=== PATIENT | female | born 1970 | race Caucasian/White ===

== ENCOUNTER → 2017-04-11 15:33 | Outpatient (CLI) | payer OTHER, SELFPAY ==
--- NOTE | 2017-04-11 16:30 | CT_ITS ---
STUDY: CT ABDOMEN AND PELVIS WITH CONTRAST REASON FOR EXAM: Female, 46 years old. LT FLANK PAIN, LBP, PELVIC PAIN, RECURRENT BACTERIAL VAGINOSIS, UTI'S, HX-BREAST CA WITH MASTECTOMY-BILAT AND CHEMO, SURG-BLADDER SLING, PARTIAL HYSTER, HERNIA REPAIR RADIATION DOSAGE (If Supplied By Facility): CTDIvol = ( 13.61 ) mGy, DLP = ( 662.08 ) mGycm TECHNIQUE: Transaxial images were obtained from the dome of the diaphragm to the symphysis pubis without oral contrast. 100 ml of Isovue 300 contrast was administered. Sagittal and coronal images were reconstructed. Individualized dose optimization techniques were used for this CT. COMPARISON: US Abdomen Oct 27 2015 8:08am report only FINDINGS: The visualized lung bases are unremarkable. The visualized portions of the heart are within normal limits. There is a mildly peripherally enhancing mass in the liver. This is likely a hemangioma. However, other etiologies are not excluded.. It measures 23 mm Normal gallbladder and extrahepatic biliary system. Normal spleen. Normal pancreas. Nonspecific 4.9 mm hypodensity in the inferior right lobe of the liver. Normal bilateral adrenal glands. Normal right kidney. Normal left kidney. Normal visualized stomach. Normal small intestine. There is wall thickening of the descending and rectosigmoid colon. There is also questionable inflammation around the colon. This can suggest a colitis. This can also suggest incomplete distension of the colon. The appendix is visualized and appears normal. Normal abdominal aorta. Normal inferior vena cava. Normal retroperitoneum. Normal urinary bladder. There is absence of the uterus consistent with a prior hysterectomy. Normal abdominal wall. Normal osseous structures. CT/Abdomen/Pelvis WITH Contrast IMPRESSION: There is a mildly peripherally enhancing mass in the liver. This is likely a hemangioma. However, other etiologies are not excluded.. It measures 23 mm. Similar finding was noted on ultrasound of November 01, 2015. Nonspecific 4.9 mm hypodensity in the inferior right lobe of the liver. Question mild colitis of the descending and rectosigmoid colon Electronically Signed: Volodymyr Weems MD at 23:53 EST , Service support ,
== END ==
PROVIDERS: Family Provider Family Medicine; PCP Family Medicine; Visit Provider Obstetrics & Gynecology
DX: R10.9 Unspecified abdominal pain (principal)
CPT/HCPCS: 74177; Q9967

== ENCOUNTER → 2017-04-12 19:21 | Outpatient (CLI) | payer OTHER, SELFPAY | PROVIDERS: Family Provider Family Medicine; PCP Family Medicine; Visit Provider Obstetrics & Gynecology | DX: N39.0 Urinary tract infection, site not specified (principal); B37.3 Candidiasis of vulva and vagina | CPT/HCPCS: 87070; 87077; 87086; 87106; 87205 ==

== ENCOUNTER → 2017-04-29 15:24 | Outpatient (CLI) | payer OTHER, SELFPAY ==
--- NOTE | 2017-04-29 15:45 | CYSPIN_PTH ---
PATIENT: ANDREW WINSTON LOC: LAB U#:[id number] AGE/SX: 54/F ROOM: RE04/29/[address]: Dr. Mariah Obrien MD : 1970 BED: DIS: SPEC #: [id number] RECD: 05/02/17 12:56 STATUS: GORDO YAP #: [id number] GENE: 04/29/17 15:[address]: Mariah Obrien DEPT: CYTOLOGY RECD BY: Zach Edwards ENTERED: 05/02/17 12:56 SP TYPE: CYSPIN FL OTHR DR: Dr. Dorian Brantley MD Tissues: Urine Procedures: Pap Stain (control) Special Stain Group II Cytospin Fluid HEADER OPERATION: Not noted PRE-OP DIAGNOSIS: Candidiasis, unspecified TISSUE SUBMITTED: Urine for cytology DIAGNOSIS CYTOLOGY Urine for cytology (cytospin): Negative for malignant cells. SJ:sherine 05/03/17 COMMENT Correlation with clinical findings and appropriate follow up are necessary. CYTOLOGY STUDY Slides are reviewed. The specimen predominantly consists of benign squamous cells. Fungal organisms are not identified. CYTOLOGY GROSS Received is 20 ml of clear, yellow fluid labeled with the patient's name and and designated per the requisition as urine. Submitted for cytology preparation. 05/02/17 TC:4 CPT: 37679
[2017-04-29 16:02] LABS: Cytology, Body Fluid / CSF SEE PATHOLOGY REPORT
== END ==
PROVIDERS: Family Provider Family Medicine; PCP Family Medicine; Visit Provider Obstetrics & Gynecology
DX: R10.9 Unspecified abdominal pain (principal); N39.0 Urinary tract infection, site not specified; R31.9 Hematuria, unspecified; B37.9 Candidiasis, unspecified; Z87.440 Personal history of urinary (tract) infections
CPT/HCPCS: 87070; 88108; 88313

== ENCOUNTER → 2017-05-17 18:18 | Outpatient (CLI) | payer OTHER, SELFPAY | PROVIDERS: PCP Family Medicine; Visit Provider Nurse Practitioner Women's Health | DX: N76.0 Acute vaginitis (principal); R30.0 Dysuria | CPT/HCPCS: 87070; 87077; 87086; 87088; 87186; 87205 ==

== ENCOUNTER → 2017-05-26 18:36 | Outpatient (CLI) | payer OTHER, SELFPAY | PROVIDERS: Family Provider Family Medicine; PCP Family Medicine; Visit Provider Obstetrics & Gynecology | DX: R30.0 Dysuria (principal); N89.8 Other specified noninflammatory disorders of vagina | CPT/HCPCS: 87070; 87077; 87086; 87106; 87205 ==

== ENCOUNTER → 2017-06-24 18:24 | Outpatient (CLI) | payer OTHER, SELFPAY | PROVIDERS: Family Provider Family Medicine; PCP Family Medicine; Visit Provider Obstetrics & Gynecology | DX: B37.3 Candidiasis of vulva and vagina (principal); N39.0 Urinary tract infection, site not specified; N94.9 Unspecified condition associated with female genital organs and menstrual cycle | CPT/HCPCS: 87070; 87086; 87088; 87106; 87205 ==

== ENCOUNTER → 2017-06-28 09:25 | Outpatient (CLI) | payer OTHER, SELFPAY ==
--- NOTE | 2017-06-28 15:13 | PFTCOMP_ITS ---
COMPLETE PULMONARY FUNCTION TEST INTERPRETATION Brief HPI: Patient is a 46 year old female, currently under the care of myself, who presents to [facility] for complete pulmonary function tests secondary to diagnosis of cough. Respiratory therapist reports good effort and reproducible results. Interpretation: Forced expiration spirometry shows a mild large airways obstructive ventilatory defect with an FEV1 of 93% predicted. There is a significant bronchodilator response in FEV1 by ATS criteria. Spirograms are of poor quality and plateau slowly, indicating slowly emptying areas of the lungs. The respiratory flow volume loop shows decreased expiratory flow rates at high lung volumes consistent with small airways obstruction. Lung volumes by body plethysmography show an elevated total lung capacity at 6.54 L, 121% predicted. All other lung volumes are symmetrically elevated. Diffusion capacity by carbon monoxide is normal at 98 % predicted. The airway resistance is normal. No previous pulmonary function tests were available for review. Impression: Fully reversible mild large airways obstructive ventilatory defect resulting in hyperinflation and consistent with the diagnosis of asthma.
[2017-07-02 13:36] LABS: B. pertussis IgA < 1.0 index (0.0-0.9); B. pertussis IgG 1.41 index (0.00-0.94); B. pertussis IgM < 1.0 index (0.0-0.9)
== END ==
PROVIDERS: Nurse Practitioner Acute Care; Family Provider Family Medicine; PCP Family Medicine; Visit Provider Internal Medicine Critical Care Medicine
DX: R05 Cough (principal)
CPT/HCPCS: 36415; 94060; 94726; 94729

== ENCOUNTER → 2017-07-04 15:38 | Outpatient (CLI) | payer OTHER, SELFPAY ==
[2017-07-04 16:46] LABS: ALB/GLOB Ratio 1.2 RATIO (0.9-2.4); AST(SGOT) 13 U/L (15-37); Alanine Aminotransfer ALT/SGPT 16 U/L (13-56); Albumin, Serum 3.7 g/dL (3.2-5.0); Alkaline Phosphatase 40 U/L (45-117); Anion Gap 5 (5-15); BUN 15 mg/dL (7-18); BUN/Creat Ratio 16.2 RATIO (10-20); Calcium,Total 8.6 mg/dL (8.5-10.1); Chloride 110 mmol/L (98-107); Creatinine, Serum 0.92 mg/dL (0.55-1.02); EST Glomerular Filtration Rate 69 mL/min (>60); Est Glom Filt Rate - Afr Amer 83 mL/min (>60); Globulin 3.2 g/dL (2.2-4.2); Glucose 88 mg/dL (74-106); Potassium 3.9 mmol/L (3.5-5.1); Protein, Total 6.9 g/dL (6.4-8.2); Sodium Level 140 mmol/L (136-145)
== END ==
PROVIDERS: Family Provider Family Medicine; PCP Family Medicine; Visit Provider Obstetrics & Gynecology
DX: B99.9 Unspecified infectious disease (principal)
CPT/HCPCS: 36415; 80053

== ENCOUNTER → 2017-07-07 09:50 | Outpatient (CLI) | payer OTHER, SELFPAY ==
[2017-07-07 11:22] LABS: Basophil# 0.04 X10^3/uL; Basophil% 1.1 % (0-1); Eosinophil# 0.07 X10^3/uL; Eosinophils% 1.9 % (0-5); Hematocrit 40.3 % (37-47); Hemoglobin 13.2 g/dl (12.0-15.0); Lymphocyte % 33.4 % (19-41); Mean Corp Hgb Conc 32.8 g/gl (32-36); Mean Corpuscular Hgb 33.2 pg (27.0-32.0); Mean Corpuscular Volume 101.3 fL (81-99); Mean Platelet Vol. 10.3 fl (6.2-12.0); Monocyte# 0.29 X10^3/uL; Monocyte% 8.1 % (0-10); Neutrophil # 1.99 X10^3/uL (2.7-7.7); Neutrophil % 55.5 % (47-70); Platelet Count 251 K/mm3 (150-450); RBC Distribution Width CV 12.2 % (11.6-14.6); RBC Distribution Width SD 45.1 fl (35.1-43.9); Red Blood Count 3.98 M/mm3 (4.2-5.4); White Blood Count 3.6 K/mm3 (4.4-11.0)
[2017-07-07 11:25] LABS: POSITIVE COUNT NO; POSITIVE DIFFERENTIAL NO; POSITIVE MORPHOLOGY NO
[2017-07-12 12:08] LABS: Aspirgillus flavus Negative (Neg:<1:1); Aspirgillus fumigatus Negative (Neg:<1:1); Aspirgillus niger Negative (Neg:<1:1)
[2017-07-12 14:07] LABS: Alternaria alternata <0.10 kU/L (Class 0); Bermuda Grass <0.10 kU/L (Class 0); Bluegrass, Kentucky 0.48 kU/L (Class I); Cat Hair/Dander, Standard <0.10 kU/L (Class 0); D farinae Mite 0.58 kU/L (Class II); D pteronyssinus 0.23 kU/L (Class 0/I); Dog Epithelia <0.10 kU/L (Class 0); Oak, White 5.49 kU/L (Class IV); Plantain, English <0.10 kU/L (Class 0); Ragweed, Short/Common 1.28 kU/L (Class II)
[2017-07-12 14:14] LABS: Immunoglobulin E 65 IU/mL (0-100)
[2017-07-12 15:18] LABS: Mouse Urine <0.10 kU/L (Class 0)
== END ==
PROVIDERS: Family Provider Family Medicine; PCP Family Medicine; Visit Provider Nurse Practitioner Acute Care
DX: R05 Cough (principal)
CPT/HCPCS: 36415; 82785; 85025; 86003; 86606

== ENCOUNTER → 2017-07-07 17:10 | Outpatient (CLI) | payer OTHER, SELFPAY | PROVIDERS: Visit Provider Obstetrics & Gynecology | DX: N76.0 Acute vaginitis (principal) | CPT/HCPCS: 87070; 87077; 87106; 87205 ==

== ENCOUNTER 2017-07-14 09:11 | Day surgery (SDC) | payer OTHER, SELFPAY ==
[2017-07-14] VITALS (8 sets, daily range): BP systolic 134–171; BP diastolic 52–83; PULSE 65–88; RESP 16–28; TEMP 36.9–37.2; O2SAT 95–100; BMI 27.1
--- NOTE | 2017-07-14 | IMM_PTH ---
PATIENT: ANDREW WINSTON LOC: EN U#:[id number] AGE/SX: 46/F ROOM: RE07/14/[address]: Dr. Arcadio Lizarraga MD : 1970 BED: DIS: 07/14/2017 SPEC #: [id number] RECD: 07/15/17 10:53 STATUS: GORDO FRACISCO #: [id number] GENE: 07/14/17 00:[address]: Arcadio Lizarraga DEPT: IMMUNOHISTOCHEMISTRY RECD BY: Brianne Ng ENTERED: 07/15/17 10:55 SP TYPE: IMMUNO OTHR DR: Dr. Dorian Brantley MD Tissues: B - Stomach, NOS C - Stomach, NOS D - HERNIA Procedures: H Pylori (initial) PHYSICIAN & INSTITUTION [place] [id number] SPECIMEN INFORMATION: Tissue Source: B ? Antrum biopsy, C ? Proximal stomach biopsy, D ? Biopsy hiatal hernia Clinical Info: Reflux, cough Specimen Number: [id number] B-D CPT code: 66765 x3 METHODOLOGY: Deparaffinized sections of prefer/formalin-fixed tissue or PAP/DQ stained slides are incubated with monoclonal/polyclonal antibodies/oligonucleotide probes. Localization is made via biotin free immunoperoxidase method. Appropriate controls are performed and reacted as expected. Results on target cell population are indicated in the following table: RESULTS: ANTIBODY / CLONE RESULT Block B H Pylori (polyclonal) negative Block C H Pylori (polyclonal) negative Block D H Pylori (polyclonal) negative These tests were developed and their performance characteristics determined by [facility]. They may not have been cleared or approved by the U.S. Food and Drug Administration. The FDA has determined that such clearance or approval is not necessary. INTERPRETATION: B. Antrum, biopsy: Negative for Helicobacter pylori organisms. C. Proximal stomach, biopsy: Negative for Helicobacter pylori organisms. D. Hiatal hernia, biopsy: Negative for Helicobacter pylori organisms. SJ:shernie 07/15/17
--- NOTE | 2017-07-14 10:40 | EGD_PTH ---
PATIENT: ANDREW WINSTON LOC: EN U#:[id number] AGE/SX: 46/F ROOM: RE07/14/[address]: Dr. Arcadio Lizarraga MD : 1970 BED: DIS: 07/14/2017 SPEC #: [id number] RECD: 07/14/17 11:20 STATUS: GORDO FRACISCO #: [id number] GENE: 07/14/17 10:[address]: Arcadio Lizarraga DEPT: SURGICAL PATHOLOGY RECD BY: Zach Edwards ENTERED: 07/14/17 12:15 SP TYPE: EGD BIOPSY OT DR: Dr. Dorian Brantley MD Tissues: A - Duodenum, NOS B - Gastric mucous membrane C - Stomach, NOS D - Esophagus, NOS E - Esophageal mucous membrane F - Esophageal mucous membrane G - Esophageal mucous membrane Procedures: Surgery Specimen Level IV HEADER OPERATION: EGD with biopsy PRE-OP DIAGNOSIS: Reflux, cough TISSUE SUBMITTED: A ? Biopsy duodenum, B ? Biopsy antrum, gastric, H. pylori, C ? Biopsy proximal stomach, D ? Biopsy hiatal hernia, E ? Biopsy distal esophagus, F ? Mid esophagus, G ? Proximal esophagus MICROSCOPIC DIAGNOSIS A. Duodenum, biopsy: Fragment of duodenal mucosa, no pathologic diagnosis. B. Antrum, biopsy: Mild gastritis. C. Proximal stomach, biopsy: Mild gastritis. D. Hiatal hernia: Mild chronic active gastritis. E. Distal esophagus, biopsy: Fragments of squamous epithelium with minimal chronic inflammation. F. Mid esophagus, biopsy: Fragments of squamous epithelium with minimal chronic inflammation. G. Proximal esophagus, biopsy: Fragment of squamous epithelium, no pathologic diagnosis. SJ:sherine 07/15/17 COMMENT B-D. The results of immunohistochemistry for Helicobacter pylori will be reported separately ([id number]). MICROSCOPIC DESCRIPTION Slides are reviewed. B & C. The specimen shows fragments of gastric mucosa with chronic inflammatory cell infiltrates in the lamina propria consisting of lymphocytes and plasma cells, consistent with mild chronic gastritis. GROSS DESCRIPTION A - Received in fixative is one container labeled with the patient's name and designated duodenum. The specimen consists of one irregular fragment of light baeza soft tissue that measures 0.3 x 0.3 x 0.1 cm. The specimen is totally submitted in one cassette. B - Received in fixative is one container labeled with the patient's name and designated antrum biopsy, antrum gastric. The specimen consists of one irregular fragment of light baeza soft tissue that measures 0.3 x 0.2 x 0.1 cm. The specimen is totally submitted in one cassette. C - Received in fixative is one container labeled with the patient's name and designated biopsy proximal stomach. The specimen consists of one irregular fragment of light baeza soft tissue that measures 0.4 x 0.4 x 0.1 cm. The specimen is totally submitted in one cassette. D - Received in fixative is one container labeled with the patient's name and designated hiatal hernia. The specimen consists of one irregular fragment of light baeza soft tissue that measures 0.8 x 0.2 x 0.1 cm. The specimen is totally submitted in one cassette. E - Received in fixative is one container labeled with the patient's name and designated distal esophagus. The specimen consists of multiple irregular fragments of light baeza soft tissue that in aggregate measure 0.6 x 0.6 x 0.1 cm. The specimen is totally submitted in one cassette. F - Received in fixative is one container labeled with the patient's name and designated mid esophagus. The specimen consists of one irregular fragment of light baeza soft tissue that measures 0.4 x 0.2 x 0.1 cm. The specimen is totally submitted in one cassette. G - Received in fixative is one container labeled with the patient's name and designated proximal esophagus. The specimen consists of one irregular fragment of light baeza soft tissue that measures 0.5 x 0.2 x 0.1 cm. The specimen is totally submitted in one cassette. / SJ:rg 07/14/17 TC:5 CPT: 58832 x7
--- NOTE | 2017-07-14 10:46 | PCM.OPRPT ---
Problem List (1) Chronic GERD Status: Acute Report of Operation Date of Procedure: 07/14/17 Pre-Operative Diagnosis: Severe chronic cough, possible silent gastroesophageal reflux disease Post-Operative Diagnosis: Moderate hiatal hernia, mild steel gastritis, minimal distal esophagitis Surgery/Procedure Performed:: Esophagogastroduodenoscopy with multiple biopsies Description of Surgical Findings:: Timeout and informed consent was obtained. 46-year-old female was taken to the endoscopy suite. Her oropharynx was anesthetized with Topex. She was placed in left lateral decubitus position. Prior to procedure during the procedure and subsequent to the procedure she had an incessant chronic nonproductive cough. She underwent monitored anesthesia care. Flexible gastroscope was inserted into the esophageal inlet. The proximal mid distal esophagus did not appear very remarkable. The EG junction was at 35 cm. A slight Schatzki ring identified. A moderately large hiatal hernia noted. Findings minimally suggestive some distal esophageal irritation. The hiatal hiatal hernia portion of the stomach had some slight erythema. The scope was advanced into the stomach and there is diffuse mild erythema of the antrum. The scope was advanced through the pylorus and the first and second portions of the duodenum were unremarkable. Duodenal biopsy was obtained. The scope was withdrawn back into the stomach and antral biopsy was obtained. The scope was retroflexed and the moderate sized hiatal hernia inspected. The cardia was otherwise unremarkable. The scope was placed back in antegrade viewing position. Excess fluid and air was aspirated free. The scope was withdrawn and proximal gastric biopsies were obtained. Biopsies of the stomach within the hiatal hernia sac were obtained. Distal esophageal biopsies obtained. Subsequently mid and proximal esophageal biopsies were obtained. She tolerated all of this well without apparent complication. She persisted postoperatively with her chronic incessant cough as she had been preoperatively. Impression Severe chronic cough suspected to be pulmonary in etiology Moderate hiatal hernia. Mild diffuse gastritis. Nonobstructing minimal Schatzki ring. Multiple biopsies pending at this time. The patient will be notified of those results. The patient previously has been on acid suppression therapy in the form of proton pump inhibitor. Consideration for utilizing a cytoprotective agent like sucralfate could be considered. Will await biopsy results. The patient may be a candidate for further investigative evaluation with esophageal manometry. Although the patient may indeed have esophageal reflux her clinical presentation and type of cough currently do not correlate well with thoughts that a surgical reflux procedure will resolve her cough Cc: Dr. Dorian Brantley and Dr. Cody Navas and Yesenia Keane, LENARD Lizarraga M.D., F.A.C.S. Type of Anesthesia:: MAC
== END 2017-07-14 11:57 | disposition home or self-care (01) ==
LOC: EN 09:13 → AC 09:14
PROVIDERS: Family Provider Family Medicine; PCP Family Medicine; Visit Provider Surgery
PROC: 0DJ08ZZ Inspection of Upper Intestinal Tract, Via Natural or Artificial Opening Endoscopic (ICD-10-PCS; CPT 43235; principal; 2017-07-14 10:25)
DX: K29.70 Gastritis, unspecified, without bleeding (principal); K44.9 Diaphragmatic hernia without obstruction or gangrene; K21.9 Gastro-esophageal reflux disease without esophagitis; K58.9 Irritable bowel syndrome, unspecified; J40 Bronchitis, not specified as acute or chronic; J45.909 Unspecified asthma, uncomplicated; E78.00 Pure hypercholesterolemia, unspecified; Z79.82 Long term (current) use of aspirin; Z79.899 Other long term (current) drug therapy; Z87.440 Personal history of urinary (tract) infections; Z85.3 Personal history of malignant neoplasm of breast; Z92.21 Personal history of antineoplastic chemotherapy
CPT/HCPCS: 43239; 88305; 88342; J7120

== ENCOUNTER → 2017-07-19 17:58 | Outpatient (CLI) | payer OTHER, SELFPAY | PROVIDERS: Family Provider Family Medicine; PCP Family Medicine; Visit Provider Obstetrics & Gynecology | DX: N39.0 Urinary tract infection, site not specified (principal); B37.3 Candidiasis of vulva and vagina | CPT/HCPCS: 87070; 87077; 87086; 87106; 87205 ==

== ENCOUNTER → 2017-08-09 17:40 | Outpatient (CLI) | payer OTHER, SELFPAY | PROVIDERS: Visit Provider Obstetrics & Gynecology | DX: N39.0 Urinary tract infection, site not specified (principal); B37.3 Candidiasis of vulva and vagina | CPT/HCPCS: 87070; 87077; 87086; 87088; 87106; 87205 ==

== ENCOUNTER → 2017-08-19 12:19 | Outpatient (CLI) | payer OTHER, SELFPAY ==
--- NOTE | 2017-08-19 12:19 | DT_ITS ---
This patient was seen during an EMR downtime August 15, 2017 - August 22, 2017. This patient may have a combination of paper and electronic documentation or all paper documentation. All documentation is viewable within the e-chart portion of [facility] for each patient visit.
[2017-08-19 15:44] LABS: AST(SGOT) 14 U/L (15-37); Albumin, Serum 3.4 g/dL (3.2-5.0); BUN 14 mg/dL (7-18); BUN/Creat Ratio 14.1 RATIO (10-20); Calcium,Total 8.5 mg/dL (8.5-10.1); Chloride 109 mmol/L (98-107); Creatinine, Serum 0.99 mg/dL (0.55-1.02); EST Glomerular Filtration Rate 64 mL/min (>60); Est Glom Filt Rate - Afr Amer 78 mL/min (>60); Globulin 3.3 g/dL (2.2-4.2); Glucose 88 mg/dL (74-106); Protein, Total 6.7 g/dL (6.4-8.2); Sodium Level 143 mmol/L (136-145)
[2017-08-19 15:45] LABS: Anion Gap 8 (5-15)
[2017-08-21 12:47] LABS: Alanine Aminotransfer ALT/SGPT 18 U/L (13-56); Alkaline Phosphatase 38 U/L (45-117)
== END ==
PROVIDERS: Family Provider Family Medicine; PCP Family Medicine; Visit Provider Obstetrics & Gynecology
DX: B37.3 Candidiasis of vulva and vagina (principal); Z13.1 Encounter for screening for diabetes mellitus; Z79.899 Other long term (current) drug therapy
CPT/HCPCS: 36415; 80053

== ENCOUNTER → 2017-08-22 12:36 | Outpatient (CLI) | payer OTHER, SELFPAY ==
--- NOTE | 2017-08-22 12:36 | DT_ITS ---
This patient was seen during an EMR downtime August 15, 2017 - August 22, 2017. This patient may have a combination of paper and electronic documentation or all paper documentation. All documentation is viewable within the e-chart portion of [facility] for each patient visit.
== END ==
PROVIDERS: Family Provider Family Medicine; PCP Family Medicine; Visit Provider Obstetrics & Gynecology
DX: N76.0 Acute vaginitis (principal)
CPT/HCPCS: 87070; 87077; 87106; 87205

== ENCOUNTER → 2017-09-02 14:08 | Outpatient (CLI) | payer OTHER, SELFPAY ==
[2017-09-02 14:10] LABS: Bacteria 0 SEEN /hpf (None Seen); Mucous, Urine 0 SEEN /hpf (<or=2+); Red Blood Cells-Urine 0 SEEN /hpf (0-5); White Blood Cells 0 SEEN /hpf (0-5)
[2017-09-02 14:17] LABS: Color, Urine Yellow (Yellow); Glucose, Dipstick Normal (Normal); Ketone-Dipstick Negative (Negative); Leukocyte Esterase-Dipstick Negative /ul (Negative); Nitrite-Dipstick Negative (Negative); Occult Blood-Urine Negative /ul (Negative); Protein-Dipstick Negative (Negative); Specific Gravity, Urine 1.015 (1.002-1.030); Urine Bilirubin Dipstick Negative (Negative); Urine Clarity Clear (Clear); Urine Urobilinogen Normal (Normal)
[2017-09-02 14:23] LABS: Squamous Epithelial Cells - UA 0-5 SEEN /hpf (5-10)
== END ==
PROVIDERS: Visit Provider Obstetrics & Gynecology
DX: N39.0 Urinary tract infection, site not specified (principal)
CPT/HCPCS: 81001; 87086; 87088

== ENCOUNTER → 2017-09-12 18:07 | Outpatient (CLI) | payer OTHER, SELFPAY | PROVIDERS: Visit Provider Obstetrics & Gynecology | DX: R10.32 Left lower quadrant pain (principal); N76.0 Acute vaginitis | CPT/HCPCS: 87070; 87077; 87106; 87205 ==

== ENCOUNTER → 2017-10-03 13:15 | Outpatient (CLI) | payer OTHER, SELFPAY | PROVIDERS: Visit Provider Obstetrics & Gynecology | DX: N76.0 Acute vaginitis (principal) | CPT/HCPCS: 87070; 87077; 87106; 87205 ==

== ENCOUNTER → 2017-10-18 10:46 | Outpatient (CLI) | payer OTHER, SELFPAY ==
[2017-10-18 12:31] LABS: Estradiol 24.5 pg/mL; Follicle Stimulating Hormone 57.8 mIU/mL
--- NOTE | 2017-10-18 12:40 | CT_ITS ---
STUDY: CT ABDOMEN AND PELVIS WITH CONTRAST REASON FOR EXAM: Female, 47 years old. Lower abdominal pain. RADIATION DOSAGE (If Supplied By Facility): CTDIvol = ( 14.37 ) mGy, DLP = ( 952.65 ) mGycm TECHNIQUE: Transaxial images were obtained from the dome of the diaphragm to the symphysis pubis with oral contrast. 100 ml of Isovue 300 contrast was administered. Sagittal and coronal images were reconstructed. Individualized dose optimization techniques were used for this CT. COMPARISON: 04/11/2017. FINDINGS: The visualized lung bases are unremarkable. The visualized portions of the heart are within normal limits. Normal shape and size of the liver. Stable appearance of a probable 2.7 cm hemangioma in the posterior segment of the right lobe. Also stable are several probable subcentimeter cysts. Normal gallbladder and extrahepatic biliary system. Normal spleen. Normal pancreas. Normal bilateral adrenal glands. Normal right kidney. Normal left kidney. Normal visualized stomach. Normal small intestine. Normal colon. There is non-visualization of the appendix. Normal abdominal aorta. Normal inferior vena cava. Since prior exam several small embolization coils are seen in the right lower quadrant and in the same general area there is some minimal stranding in the retroperitoneum of the right pelvis. This finding was present previously also. Normal urinary bladder. There is absence of the uterus consistent with a prior hysterectomy. Normal abdominal wall. Normal osseous structures. CT/Abdomen/Pelvis WITH Contrast IMPRESSION: No definite acute abnormality. Stable probable hemangioma of the liver. Since prior exam patient has had several embolization coils positioned in the right lower quadrant of the pelvis, correlate with history. Electronically Signed: Sagar [place] MD at 15:48 EDT , Service support ,
== END ==
PROVIDERS: Family Provider Family Medicine; PCP Family Medicine; Visit Provider Obstetrics & Gynecology
DX: R10.32 Left lower quadrant pain (principal); N95.1 Menopausal and female climacteric states
CPT/HCPCS: 36415; 74177; 82670; 83001; Q9967

== ENCOUNTER → 2017-12-09 14:12 | Outpatient (CLI) | payer OTHER, SELFPAY | PROVIDERS: Family Provider Family Medicine; PCP Family Medicine; Referring Provider Obstetrics & Gynecology; Visit Provider Obstetrics & Gynecology | DX: N76.0 Acute vaginitis (principal); N94.9 Unspecified condition associated with female genital organs and menstrual cycle | CPT/HCPCS: 87070; 87077; 87086; 87088; 87106; 87205 ==

== ENCOUNTER → 2018-01-04 16:46 | Outpatient (CLI) | payer OTHER, SELFPAY | PROVIDERS: Family Provider Family Medicine; PCP Family Medicine; Referring Provider Obstetrics & Gynecology; Visit Provider Obstetrics & Gynecology | DX: B37.3 Candidiasis of vulva and vagina (principal) | CPT/HCPCS: 87070; 87077; 87106; 87205 ==

== ENCOUNTER → 2018-02-13 18:34 | Outpatient (CLI) | payer OTHER, SELFPAY ==
[2018-02-13 16:29] VITALS: BMI 26.9
== END ==
PROVIDERS: Family Provider Family Medicine; PCP Family Medicine; Referring Provider Obstetrics & Gynecology; Visit Provider Obstetrics & Gynecology
DX: N89.8 Other specified noninflammatory disorders of vagina (principal)
CPT/HCPCS: 87070; 87077; 87106; 87205

== ENCOUNTER → 2018-03-10 16:23 | Outpatient (CLI) | payer OTHER, SELFPAY ==
[2018-02-13 16:29] VITALS: BMI 26.9
--- NOTE | 2018-03-10 16:30 | RAD_ITS ---
STUDY: X-RAY - ABDOMEN/PELVIS REASON FOR EXAM: Female, 47 years old. Evaluate for MRI clearance. TECHNIQUE: Single AP view of the abdomen / pelvis. COMPARISON: Prior CT's of the abdomen and pelvis dated October 18, 2017 and April 11, 2017 FINDINGS: Normal visualized lung bases. There is an unremarkable bowel gas pattern. There is no demonstrated free abdominal air. The visualized liver, spleen and kidneys are grossly normal in size and morphology. There was residual barium in the right side of the colon on the October 18, 2017 CT. This has cleared. Normal visualized osseous structures. RAD/Abdomen Single View IMPRESSION: The patient is cleared for MRI of the abdomen. Electronically Signed: Wong Doe MD at 17:01 EST , Service support ,
--- NOTE | 2018-03-10 17:30 | MRI_ITS ---
STUDY: MR PELVIS WITH T WITHOUT CONTRAST REASON FOR EXAM: Female, 47 years old. Chronic pelvic pain. History of breast cancer and partial hysterectomy. Umbilical hernia repair and bladder sling. TECHNIQUE: Standardized fat and water weighted pulse sequences were obtained in all 3 orthogonal planes, pre-and post contrast administration. 7 ml of Gadavist contrast material was administered intravenously for the contrast portion of the examination. COMPARISON: CT abdomen and pelvis 10/18/2017, 04/11/2017. FINDINGS: Body wall soft tissues: No acute process. Osseous structures: Mild scoliosis. Minimal low lumbar spondylosis. Minimal hip joint degenerative features. No acute process. Bowel: Evaluated portions of the large and small bowel exhibit no acute process. Mild diverticulosis of the sigmoid colon. Mild chronic-appearing thickening of the wall and proliferation of creeping fat surrounding the sigmoid colon suggesting chronic sequela from prior episodes of inflammation without evidence of acute colitis or diverticulitis at this time. On prior imaging, the appendix was anterior and inferior to the base of the cecum. On the current study a portion of the proximal appendix is visible, unremarkable features. Urinary tract: Normal distal ureters. The urinary bladder is mildly thick-walled, mildly trabeculated, without acute inflammatory features in the surrounding periserosal fat. Normal course of the urethra. Uterus and adnexa: The uterus is surgically absent. Unremarkable features of the vagina. No significant cervical remnant. Prominent veins in the left adnexa are associated with a mildly ectatic left gonadal vein. As seen on prior imaging of 10/18/2017 there was retrograde left renal venous flow down a dilated left gonadal vein into the left adnexal veins. This may be a normal variant venous pathways but may be associated with pelvic venous congestion symptoms in some cases. Right ovary is small, lying along the distal nasal salpinx, unremarkable features. The left ovary contains a cyst measuring 2.1 cm in diameter, simple cystic features, thin-walled, central homogeneous T2 hyperintense and T1 hypointense. There is no adnexal or cul-de-sac free fluid. Adenopathy: There is no visible pelvic lymphadenopathy. Vasculature: Unremarkable. MRI/Pelvis W/WO Contrast IMPRESSION: Left ovarian cyst, simple cystic features, 2.1 cm. Mild thickening and trabeculation of the wall the urinary bladder. Left adnexal venous congestion as described above. This may be of no clinical significance but might contribute to symptoms of pelvic venous congestion syndrome. No acute intrapelvic process is otherwise evident. Electronically Signed: Zach Prajapati MD at 16:23 EST Tel , Service support ,
== END ==
PROVIDERS: Family Provider Family Medicine; PCP Family Medicine; Referring Provider Obstetrics & Gynecology; Visit Provider Obstetrics & Gynecology
DX: R10.2 Pelvic and perineal pain (principal); G89.29 Other chronic pain; R93.89 Abnormal findings on diagnostic imaging of other specified body structures
CPT/HCPCS: 72197; 74018; A9585

== ENCOUNTER → 2018-04-12 16:32 | Outpatient (CLI) | payer OTHER, SELFPAY ==
[2018-04-12 13:05] VITALS: BMI 26.9
== END ==
PROVIDERS: Family Provider Family Medicine; PCP Family Medicine; Referring Provider Obstetrics & Gynecology; Visit Provider Obstetrics & Gynecology
DX: R30.0 Dysuria (principal); N89.8 Other specified noninflammatory disorders of vagina
CPT/HCPCS: 87070; 87086; 87088; 87106; 87205

== ENCOUNTER 2018-05-20 08:55 | Outpatient (CLI) | payer OTHER, SELFPAY ==
[2018-04-12 13:05] VITALS: BMI 26.9
[2018-05-20 09:15] VITALS: BP 159/88; PULSE 69; RESP 16; TEMP 36.8; O2SAT 100; BMI 25.4
[2018-05-20] MEDS: 0.9% NaCl Peripheral Flush Adult/Peds IV (09:54)
--- NOTE | 2018-05-24 00:40 | OB.TRI.PN ---
Progress Notes Date of Service: 05/20/18 Progress Note: IV infusion of mucofungin given for refractory vaginal candidiasis
== END 2018-05-20 11:10 | disposition home or self-care (01) ==
LOC: MEDOUTP 08:57 → MS2 09:03
PROVIDERS: Family Provider Family Medicine; PCP Family Medicine; Referring Provider Obstetrics & Gynecology; Visit Provider Obstetrics & Gynecology
DX: B37.3 Candidiasis of vulva and vagina (principal)
CPT/HCPCS: 96365; A4216

== ENCOUNTER 2018-05-21 08:50 | Outpatient (CLI) | payer OTHER, SELFPAY ==
[2018-05-20 09:15] VITALS: BMI 25.4
[2018-05-21 09:08] VITALS: BP 174/110; PULSE 52; RESP 16; TEMP 36.5; O2SAT 100
--- NOTE | 2018-05-24 00:39 | OB.TRI.PN ---
Progress Notes Date of Service: 05/21/18 Progress Note: IV infusion of mucofungin given for refractory vaginal candidiasis
== END 2018-05-21 11:08 | disposition home or self-care (01) ==
LOC: MEDOUTP 08:53 → MS2 08:54
PROVIDERS: Family Provider Family Medicine; PCP Family Medicine; Visit Provider Obstetrics & Gynecology
DX: B37.3 Candidiasis of vulva and vagina (principal)
CPT/HCPCS: 96365

== ENCOUNTER 2018-05-22 06:34 | Outpatient (CLI) | payer OTHER, SELFPAY ==
[2018-05-22] MEDS: 0.9% NaCl IVPB Med Flush (250 mL) 15 ML IV (06:45)
[2018-05-22] MEDS: 0.9% NaCl Peripheral Flush Adult/Peds IV (07:13)
--- NOTE | 2018-05-24 00:38 | OB.TRI.PN ---
Progress Notes Date of Service: 05/22/18 Progress Note: IV infusion of mucofungin given for refractory vaginal candidiasis
== END 2018-05-22 08:30 | disposition home or self-care (01) ==
LOC: MEDOUTP 06:37 → MS3 06:37
PROVIDERS: Family Provider Family Medicine; PCP Family Medicine; Referring Provider Obstetrics & Gynecology; Visit Provider Obstetrics & Gynecology
DX: B37.3 Candidiasis of vulva and vagina (principal)
CPT/HCPCS: 96365; J7050; A4216

== ENCOUNTER → 2018-09-29 15:44 | Outpatient (CLI) | payer OTHER, SELFPAY ==
[2018-09-29 14:38] VITALS: BMI 24.3
--- NOTE | 2018-09-29 15:50 | RAD_ITS ---
STUDY: X-RAY CHEST REASON FOR EXAM: Female, 48 years old. Lymphedema. History of breast cancer. TECHNIQUE: PA and lateral views of the chest. COMPARISON: None. FINDINGS: The lungs are clear and expanded. There is no demonstrated pleural abnormality. Normal size heart. Normal mediastinum and gia. Normal visualized pulmonary arteries. Normal visualized aortic arch and descending thoracic aorta. Normal visualized thoracic spine. Normal visualized ribs, clavicles, and shoulders. There are bilateral breast implants. There is no demonstrated abnormality of the visualized soft tissue structures of the upper abdomen. RAD/Chest PA and Lateral IMPRESSION: No acute cardiopulmonary disease. Electronically Signed: Prasad Saldana DO at 16:17 EDT Tel [phone], Service support ,
== END ==
PROVIDERS: Family Provider Family Medicine; PCP Family Medicine; Referring Provider Surgery; Visit Provider Surgery
DX: I89.0 Lymphedema, not elsewhere classified (principal)
CPT/HCPCS: 71046

== ENCOUNTER → 2019-08-14 09:50 | Outpatient (CLI) | payer OTHER, SELFPAY ==
[2019-01-22 15:36] VITALS: BMI 24.3
[2019-08-14 12:14] LABS: Absolute Lymphocyte Count 1.13 X10^3/uL (0.83-4.51); Absolute Neutrophil Count 2.1 X10^3/uL (2.0-7.7); Basophil# 0.05 X10^3/uL; Basophil% 1.4 % (0-1); Eosinophil# 0.08 X10^3/uL; Eosinophils% 2.2 % (0-5); Hematocrit 44.6 % (37-47); Hemoglobin 13.8 g/dL (12.0-15.0); Lymphocyte # 1.13 X10^3/ul (4.0); Lymphocyte % 30.5 % (19-41); Mean Corp Hgb Conc 30.9 g/dL (32-36); Mean Corpuscular Hgb 31.9 pg (27.0-32.0); Mean Corpuscular Volume 103.2 fL (81-99); Mean Platelet Vol. 10.7 fl (6.2-12.0); Monocyte# 0.32 X10^3/uL; Monocyte% 8.6 % (0-10); NRBC Flagged by Analyzer 0 % (0-5); Neutrophil % 56.8 % (47-70); Platelet Count 199 K/mm3 (150-450); RBC Distribution Width CV 12.9 % (11.6-14.6); RBC Distribution Width SD 48.9 fl (35.1-43.9); Red Blood Count 4.32 M/mm3 (4.2-5.4); White Blood Count 3.7 K/mm3 (4.4-11.0)
[2019-08-14 12:18] LABS: Color, Urine Yellow (Yellow); Glucose, Dipstick Normal (Normal); Ketone-Dipstick Negative (Negative); Leukocyte Esterase-Dipstick Negative /ul (Negative); Nitrite-Dipstick Negative (Negative); Occult Blood-Urine Negative /ul (Negative); Protein-Dipstick Negative (Negative); Urine Bilirubin Dipstick Negative (Negative); Urine Clarity Clear (Clear); Urine Urobilinogen Normal (Normal)
[2019-08-14 12:25] LABS: Erythrocyte Sedimentation Rate 6 mm/hr (0-30)
[2019-08-14 12:57] LABS: Protein:Creat Ratio 102 mg/g CRE (0-200)
[2019-08-14 13:10] LABS: AST(SGOT) 20 U/L (15-37); Alanine Aminotransfer ALT/SGPT 33 U/L (13-56); Alkaline Phosphatase 53 U/L (45-117); Anion Gap 9 (5-15); BUN 15 mg/dL (7-18); BUN/Creat Ratio 13.8 RATIO (10-20); CRP < 2.90 mg/L (0.0-3.0); Calcium,Total 8.9 mg/dL (8.5-10.1); Chloride 108 mmol/L (98-107); Creatinine, Serum 1.09 mg/dL (0.55-1.02); EST Glomerular Filtration Rate 56 mL/min (>60); Est Glom Filt Rate - Afr Amer 68 mL/min (>60); Globulin 3.9 g/dL (2.2-4.2); Glucose 88 mg/dL (74-106); Potassium 3.6 mmol/L (3.5-5.1); Protein, Total 7.9 g/dL (6.4-8.2); Rheumatoid Factor < 10.0 IU/mL (<15); Sodium Level 139 mmol/L (136-145)
[2019-08-14 14:24] LABS: Hepatitis B Surface Antibody Non-Reactive; Hepatitis B Surface Antigen Non-Reactive (Nonreactive); Hepatitis C Antibody Non-Reactive (Nonreactive)
[2019-08-15 14:08] LABS: RNP Ab 0.2 AI (0.0-0.9); Smith Ab <0.2 AI (0.0-0.9)
[2019-08-15 17:16] LABS: ANTINUCLEAR ANTIBODIES DIRECT Negative (Negative); Anti-dsDNA Ab 1 IU/mL (0-9)
[2019-08-16 03:06] LABS: Complement C3 104 mg/dL (82-167)
[2019-08-16 05:19] LABS: CCP IgG Antibodies 7 units (0-19); Hepatitis B Core AB IgM Negative (Negative)
== END ==
PROVIDERS: PCP Family Medicine; Referring Provider Internal Medicine Rheumatology; Visit Provider Internal Medicine Rheumatology
DX: M06.4 Inflammatory polyarthropathy (principal); M79.7 Fibromyalgia; M47.892 Other spondylosis, cervical region; M47.897 Other spondylosis, lumbosacral region; K21.9 Gastro-esophageal reflux disease without esophagitis; K58.9 Irritable bowel syndrome, unspecified; G43.909 Migraine, unspecified, not intractable, without status migrainosus; J45.909 Unspecified asthma, uncomplicated; I97.2 Postmastectomy lymphedema syndrome; Z85.3 Personal history of malignant neoplasm of breast
CPT/HCPCS: 36415; 80053; 81002; 82570; 84156; 85025; 85652; 86038; 86140; 86160; 86200; 86225; 86235; 86431; 86705; 86706; 86803; 87340

== ENCOUNTER → 2019-12-19 12:18 | Outpatient (CLI) | payer OTHER, SELFPAY ==
[2019-01-22 15:36] VITALS: BMI 24.3
--- NOTE | 2019-12-19 13:43 | NEURO ---
NCS and/or EMG Patient Report Ordering Doctor: Efren Bourgeois DATE OF SERVICE: 12/19/19 Lilia Rodarte presents for electrodiagnostic testing of the right upper limb. She reports three months of pain and numbness in the right arm. Electrodiagnostic findings: Normal right median and ulnar motor studies. F-waves are normal. Sensory responses are normal. Needle EMG testing reveals no evidence of denervation with normal motor unit action potentials. Electrodiagnostic Assessment: This is a normal electrodiagnostic study of the right upper limb. There is no electrodiagnostic evidence for cervical radiculopathy, brachial plexopathy or peripheral neuropathy.
== END ==
PROVIDERS: PCP Family Medicine; Referring Provider Anesthesiology Pain Medicine; Visit Provider Anesthesiology Pain Medicine
DX: M54.12 Radiculopathy, cervical region (principal)
CPT/HCPCS: 95886; 95910

== ENCOUNTER → 2019-12-31 07:23 | Day surgery (SDC) | payer OTHER, SELFPAY ==
[2019-01-22 15:36] VITALS: BMI 24.3
[2019-12-31] VITALS (7 sets, daily range): BP systolic 94–147; BP diastolic 48–72; PULSE 56–72; RESP 16; TEMP 36.8–37.4; O2SAT 98–100; BMI 20.9
--- NOTE | 2019-12-31 07:08 | RAD_ITS ---
PROCEDURE: Right C4-C7 radiofrequency ablation. DATE OF EXAMINATION: 12/31/2019. INDICATION: Female, 49 years old. Chronic neck pain. FLUOROSCOPY TIME (if supplied): (28 seconds) minutes/seconds. One image was submitted. Intraoperative imaging provided for right C4-C7 radiofrequency ablation. RAD/Cerv Spine 4 or 5 Views IMPRESSION: Intraoperative imaging provided for right C4-C7 radiofrequency ablation. Electronically Signed: Mihir Lucas, at 10:51 EDT , Service support ,
[2019-12-31] MEDS: Lactated Ringers 1,000 ML 100 ML IV (07:49)
[2019-12-31] MEDS: MethylPREDNISolone Acetate 80 MG/ML Vial (08:50)
[2019-12-31] MEDS: Bupivacaine 0.25% 30 ML Vial (08:50)
--- NOTE | 2019-12-31 16:16 | PCM.OPRPT ---
Report of Operation Date of Procedure: 12/31/19 Description of Surgical Findings:: PREOPERATIVE DIAGNOSIS: Cervical spondylosis, cervical degenerative disc disease, cervical facet arthropathy POSTOPERATIVE DIAGNOSIS: Cervical spondylosis, cervical degenerative disc disease, cervical facet arthropathy PROCEDURE PERFORMED: Right-sided radiofrequency ablation of the medial branch at C4, C5, C6, and C7. ANESTHESIA: MAC. BLOOD LOSS: Minimal. COMPLICATIONS: None. DESCRIPTION OF PROCEDURE: History and physical of today was reviewed. Risks and benefits of the procedure were explained. The patient understood and agreed to proceed. Informed consent was obtained. IV inserted per routine protocol. The patient was taken to the operating room and placed in the prone position with a pillow positioned underneath the chest. The neck area was prepped and draped in a sterile fashion using iodine x3. Under fluoroscopy guidance on an AP view, the C4 through C7 vertebral bodies were visualized. The skin and subcutaneous tissue was anesthetized with approximately 10 mL of 1% lidocaine using a 25-gauge regular needle. Under direct visualization on fluoroscopy on a lateral view, using a 21-gauge 10-cm with a 10-mm curved active-tip radiofrequency ablation needle, the needle was passed through the skin. The tip of the needle was maneuvered and directed towards the epiphyseal junction of each corresponding vertebra, starting on the right C4, ending on the right C7, passing through the C5 and C6. Once the tip of the needle was at the vicinity of the medial branch and at the middle of the trapezoid on the lateral view, the stylette of each needle was then removed. After negative aspiration of blood or CSF and confirmation on AP, oblique as well as lateral view, radiofrequency ablation probe was then inserted at each level. Impedance was then recorded at C4 to be 260 ohm, at C5 to be 245 ohm, at C6 to be 267 ohm, and at C7 to be 251 ohm. Motor-evoked potential was then initiated to 1.5 volt without any motor response to each corresponding level or the right arm. The probe was then removed intact and a total of 4 mL of preservative-free 1% lidocaine was injected in divided doses between those four levels after negative aspiration of blood or CSF. After repeated confirmation, the radiofrequency ablation probe was then inserted and after repeated confirmation on AP, oblique as well as lateral view, radiofrequency ablation was then initiated to approximately 80 degree Celsius for 60 second at each level. Once concluded, the probe was then removed intact. A total of 4 mL of preservative-free 0.25% Marcaine with 40 mg of Depo-Medrol was injected in divided doses between those four levels. The needles were then removed intact. The patient experienced no sign or symptoms of intrathecal or intravascular injection. The patient experienced no paresthesia. The procedure was completed without any apparent difficulty or any complications. The patient appeared to tolerate it well. Sensory as well as motor exam was unchanged from prior to the procedure. ASSESSMENT AND PLAN: This is a 49-year-old female with cervical spondylosis, cervical degenerative disc disease, cervical facet arthropathy status post right-sided cervical radiofrequency ablation of the medial branch C4-C7, patient will continue her current medications, patient will phone approximately 2 weeks for reevaluation.
== END | disposition home or self-care (01) ==
LOC: SDC 07:24 → AC 07:25
PROVIDERS: PCP Family Medicine; Referring Provider Anesthesiology Pain Medicine; Visit Provider Anesthesiology Pain Medicine
PROC: (CPT 64633; principal; 2019-12-31 08:45)
DX: M47.22 Other spondylosis with radiculopathy, cervical region (principal); M50.10 Cervical disc disorder with radiculopathy, unspecified cervical region; M48.02 Spinal stenosis, cervical region; G89.29 Other chronic pain; K58.9 Irritable bowel syndrome, unspecified; E78.00 Pure hypercholesterolemia, unspecified; J45.909 Unspecified asthma, uncomplicated; K21.9 Gastro-esophageal reflux disease without esophagitis; Z79.82 Long term (current) use of aspirin; Z79.891 Long term (current) use of opiate analgesic; Z79.899 Other long term (current) drug therapy; Z85.3 Personal history of malignant neoplasm of breast; Z92.21 Personal history of antineoplastic chemotherapy
CPT/HCPCS: 01936; 64633; 64634 ×3; 72050; 76000; J7120

== ENCOUNTER 2021-05-19 11:54 | Outpatient (CLI) | payer OTHER, SELFPAY ==
--- NOTE | 2021-05-19 11:56 | NM_ITS ---
CLINICAL: 50-year-old female with reported history of abdominal pain. SEMI-SOLID PHASE 99m Tc SULFUR COLLOID GASTRIC EMPTYING STUDY COMPARISON: None available FINDINGS: The patient was administered 1.1 mCi of 99m Tc sulfur colloid mixed with oatmeal and consumed per os. Image acquisitions in the anterior-posterior projections for a total of 60 minutes. There is prompt visualization of the stomach. There is no gastroesophageal reflux identified. The T ? emptying was calculated to be 30.24 minutes, (Normal: 12-56 minutes). NM/Gastric Emptying Study IMPRESSION: 1. NORMAL 99m Tc sulfur colloid semi-solid phase (oatmeal) gastric emptying imaging examination. A. There is normal and preserved semi-solid phase gastric emptying compared to normal controls. (Leo et al, J Nucl Med Tech 38: 186, 2010). Electronically Signed: Zach Mishra DO at 22:43 EST ,
== END 2021-05-19 23:59 | disposition home or self-care (01) ==
LOC: NM 11:55
PROVIDERS: PCP Family Medicine; Referring Provider Internal Medicine Gastroenterology; Visit Provider Internal Medicine Gastroenterology
DX: R10.13 Epigastric pain (principal); K58.9 Irritable bowel syndrome, unspecified
CPT/HCPCS: 78264; A9541

== ENCOUNTER 2021-05-27 15:06 | Outpatient (CLI) | payer OTHER, SELFPAY ==
--- NOTE | 2021-05-27 15:11 | RAD_ITS ---
INDICATION: sitz day 3 EXAMINATION/TECHNIQUE: X-RAY - XR Abdomen 1 View COMPARISON: None FINDINGS/ RAD/Abdomen Single View IMPRESSION: Sitzmarker follow-up day 3. The majority of these sitzs capsules have reached the sigmoid colon. There is at a least 2 capsules within the rectum. Moderate stool burden throughout the colon. Otherwise, nonobstructive bowel gas pattern. Bones and soft tissues are unremarkable. Electronically Signed: Chilango Olivo, at 16:28 EDT ,
== END 2021-05-27 23:59 | disposition home or self-care (01) ==
LOC: RAD 15:07
PROVIDERS: PCP Family Medicine; Referring Provider Internal Medicine Gastroenterology; Visit Provider Internal Medicine Gastroenterology
DX: K58.9 Irritable bowel syndrome, unspecified (principal); R10.13 Epigastric pain
CPT/HCPCS: 74018

== ENCOUNTER 2021-05-29 15:03 | Outpatient (CLI) | payer OTHER, SELFPAY ==
--- NOTE | 2021-05-29 15:10 | RAD_ITS ---
STUDY: X-RAY - ABDOMEN/PELVIS REASON FOR EXAM: Female, 50 years old. sitz day 5 TECHNIQUE: Single AP view of the abdomen / pelvis. COMPARISON: None. FINDINGS: Single radiopaque marker projects over the left hemipelvis. Fecal residue throughout the colon. No dilated loops of small bowel. There is no demonstrated free abdominal air. The visualized liver, spleen and kidneys are grossly normal in size and morphology. Normal soft tissue structures. Normal visualized osseous structures. RAD/Abdomen Single View IMPRESSION: Single retained radiopaque marker in the left hemipelvis. Electronically Signed: Heber Arellano MD ([place]) at 15:37 EDT Reading Location ID and State: [id number] , Service support ,
== END 2021-05-29 23:59 | disposition home or self-care (01) ==
LOC: RAD 15:04
PROVIDERS: PCP Family Medicine; Referring Provider Internal Medicine Gastroenterology; Visit Provider Internal Medicine Gastroenterology
DX: K58.9 Irritable bowel syndrome, unspecified (principal); R10.13 Epigastric pain
CPT/HCPCS: 74018

== ENCOUNTER 2021-06-08 07:54 | Outpatient (CLI) | payer OTHER, SELFPAY ==
--- NOTE | 2021-06-08 08:00 | RAD_ITS ---
PROCEDURE: Upper GI with Small Bowel Follow Through DATE OF EXAMINATION: 06/08/2021. INDICATION: Female, 50 years old. Abdominal cramping and acid reflux. FLUOROSCOPY TIME (if supplied): (1:34) minutes/seconds. 25 images were obtained. TECHNIQUE: Radiographic and fluoroscopic images of the distal esophagus, stomach, and entire small intestine were obtained following the oral ingestion of barium. COMPARISON: None. FINDINGS: The offshore wind operations manager film of the abdomen demonstrates a normal bowel gas pattern. There are no abnormal calcifications or organomegaly demonstrated. The visualized osseous structures are normal. The esophagus is unremarkable. No evidence of gastroesophageal reflux. No evidence of obstruction. The stomach and duodenum are unremarkable. No evidence of ulceration. A single contrast small bowel follow through exam demonstrates the small bowel to have no evidence for stricture, ulceration or mass. The transit time is normal at 30 minutes. RAD/Upper GI/w Small Bowel IMPRESSION: 1. Normal air contrast contrast upper GI series and small bowel follow-through exam. Electronically Signed: Mihir Lucas MD at 9:05 EDT ,
== END 2021-06-08 23:59 | disposition home or self-care (01) ==
LOC: RAD 07:55
PROVIDERS: PCP Family Medicine; Referring Provider Internal Medicine Gastroenterology; Visit Provider Internal Medicine Gastroenterology
DX: R10.13 Epigastric pain (principal); K58.9 Irritable bowel syndrome, unspecified
CPT/HCPCS: 74246; 74248

== ENCOUNTER 2023-01-26 06:08 | Day surgery (SDC) | payer OTHER, SELFPAY ==
--- NOTE | 2023-01-25 | EGD_PTH ---
PATIENT: ANDREW WINSTON LOC: EN U#:[id number] AGE/SX: 52/F ROOM: RE01/26/[address]: Dr. Pepe Millan DO : 1970 BED: DIS: 01/26/2023 SPEC #: [id number] RECD: 01/26/23 11:39 STATUS: GORDO FRACISCO #: [id number] GENE: 01/25/23 00:[address]: Pepe Millan DEPT: SURGICAL PATHOLOGY RECD BY: Mallory Rocha ENTERED: 01/26/23 11:39 SP TYPE: EGD BIOPSY OT DR: Dr. Simone Washington DO Tissues: A - Esophageal mucous membrane B - Cecum, NOS C - COLON BIOPSY Procedures: Special Stain Group II Surgery Specimen Level IV Alcian Blue/PAS (control) HEADER OPERATION: Colonoscopy with biopsy, EGD with biopsy PRE-OP DIAGNOSIS: IBS TISSUE SUBMITTED: A - Distal esophagus, B - Cecum biopsy, C - Random colon biopsy MICROSCOPIC DIAGNOSIS A. Distal esophagus, biopsy: Gastroesophageal junctional mucosa with mild chronic inflammation. No evidence of goblet cell metaplasia. See comment. B. Cecum, biopsy: Focal acute colitis. C. Colon, random biopsy: No pathologic change. AM:sherine 01/27/2023 COMMENT A. Alcian blue/PAS stain with matched control supports the above diagnosis. MICROSCOPIC DESCRIPTION Slides are reviewed. GROSS DESCRIPTION A - Received in fixative is one container labeled with the patient's name and designated distal esophagus. The specimen consists of multiple irregular fragments of light baeza soft tissue that in aggregate measure 1.0 x 0.3 x 0.1 cm. The specimen is totally submitted in one cassette. B - Received in fixative is one container labeled with the patient's name and designated cecum biopsy. The specimen consists of multiple irregular fragments of light baeza soft tissue that in aggregate measure 1.0 x 0.3 x 0.1 cm. The specimen is totally submitted in one cassette. C - Received in fixative is one container labeled with the patient's name and designated random colon biopsy. The specimen consists of multiple irregular fragments of light baeza soft tissue that in aggregate measure 1.5 x 0.3 x 0.1 cm. The specimen is totally submitted in one cassette. / AM:sherine 01/26/2023 TC:2 CPT: 57821 x3, 11957
[2023-01-26] VITALS (8 sets, daily range): BP systolic 100–119; BP diastolic 63–75; PULSE 69–90; RESP 14–100; TEMP 36.6–36.9; O2SAT 16–100; BMI 23.1
--- NOTE | 2023-01-26 07:04 | HP.PCM_ITS ---
History and Physical Date of Admission: 01/26/23 Acid Reflux Details: ANDREW WINSTON, is a 50 F who presents to the office today for Follow up visit. Andrew established with this clinic 04.29.21 for GERD with emesis and IBS management. Onset 2014 with exacerbation of reflux over summer of 2020. EGD 02.12.21 finding Grade 1 esophagitis without dysplasia; Mild gastritis, with minimal inflammation and congestion, possible reactive gastropathy 2cm hiatal hernia. H.Pylori negative. Gastric emptying study 05.19.21 found normal emptying at 30.24 minutes, normal 12- 56 minutes. SITZ marker study performed starting 05.27.21. Day three found three rings entering the RLQ, six rings in the LUQ and twelve in the LLQ and rectum. Day five found on ring in the rectum. Plan last visit 06.18.21: IBS ? slow transit constipation study (SITZ markers), continue Capps? colon health and start amitiza 8mcg. GERD ? 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 Possible ablation for intestinal metaplasia. Epigastric pain ? possible associated with alcohol/alcoholic gastritis. Amitiza 8mcg was ineffective; increased to 24mcg and this was too effective and cause uncontrollable diarrhea with abdominal cramping. Stopped last week and is now not having daily BM and feels incomplete evacuation. ROS Const Constitutional: No anorexia, fatigue, fever(s), weight change or sleep problems Eyes Eyes: No change in vision ENT ENT: No abnormal hearing, difficulty swallowing, mouth lesions, tongue swelling or throat swelling Resp Respiratory: No cough or shortness of breath Cardio Cardiology: No chest pain at rest, chest pain with exertion, shortness of breath or dyspnea on exertion Gastro GI: No difficulty swallowing Genitourinary-Female: No difficulty urinating or burning urination Musc Musculoskeletal: No joint pain, joint swelling, muscle weakness or decreased muscle mass Skin Skin: No hair loss in leg, yellowing of the eye, itchy eyes, rash, skin ulcer or skin swelling Neuro Neurology: No abnormal hearing, abnormal movements, confusion, unsteady gait/balance or memory loss Psych Psychiatric: No anxiety, No confusion and No memory loss Endo Endocrine: No fatigue or weight change Aller/Imm Allergy/Immunologic: No itchy eyes, throat swelling or tongue swelling Aquilino/Lymp Hematologic/Lymphatic: No easy bleeding, easy bruising or enlarged lymph nodes Quality Reporting Tobacco Screening (CMS 138) Smoking Status: Never smoker Assessment and Plan Assessment and Plan (1) IBS (irritable bowel syndrome): Status: Acute Qualifiers: Irritable bowel syndrome type: with constipation Qualified Code(s): K58.1 - Irritable bowel syndrome with constipation Plan - Dr. Cantu Friend, DO: . Her bowel syndrome has been under control. She is not having much cramping or abdominal pain. She did experience some cramping with abdominal pain after taking Amitiza 24mcg. Since that was too strong and caused her to have diarrhea we will give her 3 mg of Trulance once a day. She does get episodes of diarrhea we will increase it to every other day. (2) Epigastric pain: Status: Acute Plan - Dr. Cantu Friend, DO: Epigastric pain has resolved with pantoprazole therapy. We will continue that at a 20 mg dose. (3) Chronic GERD: Status: Acute Plan - Dr. Cantu Friend, DO: She is okay with taking the 20 mg a day despite she is osteopenic. We have talked about weaning it off. However she is very nervous going off of the medicine due to the worsening asthma, cough and chest pain that she gets when she is not on proton pump inhibitors. We will reassess this in 3 months. I have examined the patient and the H&P has been reviewed. There are no clinical changes since date of exam.
--- NOTE | 2023-01-26 07:42 | OP.EGD_ITS ---
Patient Name: Lilia Rodarte Procedure Date: 01/26/2023 7:07 AM Date of : 1970 Age: 52 Procedure: Upper GI endoscopy Indications: Follow-up of Hassan's esophagus Providers: Pepe Millan DO Medicines: Monitored Anesthesia Care Patient Profile: This is a 52 year old female. Refer to note in patient chart for documentation of history and physical. Patient has symptoms of chronic heartburn and chronic nausea. Complications: No immediate complications. Procedure: Pre-Anesthesia Assessment: - Prior to the procedure, a History and Physical was performed, and patient medications and allergies were reviewed. The patient is competent. The risks and benefits of the procedure and the sedation options and risks were discussed with the patient. All questions were answered and informed consent was obtained. Patient identification and proposed procedure were verified by the physician in the pre-procedure area. Mental Status Examination: alert and oriented. Airway Examination: normal oropharyngeal airway and neck mobility. Respiratory Examination: clear to auscultation. CV Examination: normal. Prophylactic Antibiotics: The patient does not require prophylactic antibiotics. Prior Anticoagulants: The patient has taken no anticoagulant or antiplatelet agents. ASA Grade Assessment: II - A patient with mild systemic disease. After reviewing the risks and benefits, the patient was deemed in satisfactory condition to undergo the procedure. The anesthesia plan was to use monitored anesthesia care (MAC). Immediately prior to administration of medications, the patient was re-assessed for adequacy to receive sedatives. The heart rate, respiratory rate, oxygen saturations, blood pressure, adequacy of pulmonary ventilation, and response to care were monitored throughout the procedure. The physical status of the patient was re-assessed after the procedure. After obtaining informed consent, the endoscope was passed under direct vision. Throughout the procedure, the patient's blood pressure, pulse, and oxygen saturations were monitored continuously. The Colonoscope was introduced through the mouth, and advanced to the second part of duodenum. The upper GI endoscopy was accomplished without difficulty. The patient tolerated the procedure well. Scope In: 7:17:50 AM Scope Out: 7:22:27 AM Total Procedure Duration Time 0 hours 4 minutes 37 seconds Findings: The Z-line was irregular and was found 37 cm from the incisors. Biopsies were taken with a cold forceps for histology. Verification of patient identification for the specimen was done. Estimated blood loss was minimal. A small hiatal hernia was present. No other significant abnormalities were identified in a careful examination of the stomach. The second portion of the duodenum was normal. Impression: - Z-line irregular, 37 cm from the incisors. Biopsied. - Small hiatal hernia. - Normal second portion of the duodenum. Recommendation: - Discharge patient to home. - Resume previous diet. - Continue present medications. - Await pathology results. - Repeat upper endoscopy in 1 year for surveillance. Procedure Code(s): --- Professional --- 99781, Esophagogastroduodenoscopy, flexible, transoral; with biopsy, single or multiple CPT copyright 2021 [employer]. All rights reserved. The codes documented in this report are preliminary and upon medical records coder review may be revised to meet current compliance requirements. Pepe Millan DO 01/26/2023 7:42:20 AM This report has been signed electronically. Number of Addenda: 0 Note Initiated On: 01/26/2023 7:07 AM
--- NOTE | 2023-01-26 07:42 | OP.CCLET_ITS ---
01/26/2023 Dorian Brantley Md Re : Upper GI endoscopy procedure for Lilia Rodarte Dear Karon This procedure was performed on Thursday, January 26, 2023. My impressions and recommendations are as follows: Impressions : - Z-line irregular, 37 cm from the incisors. Biopsied. - Small hiatal hernia. - Normal second portion of the duodenum. Recommendations : - Discharge patient to home. - Resume previous diet. - Continue present medications. - Await pathology results. - Repeat upper endoscopy in 1 year for surveillance. My findings are described in the full procedure note, which is enclosed. If I can be of further assistance, please feel free to contact me at . Sincerely, Pepe Millan, 01/26/2023 7:42:20 AM This report has been signed electronically.
--- NOTE | 2023-01-26 07:45 | OP.COLON_ITS ---
Patient Name: Lilia Rodarte Procedure Date: 01/26/2023 7:22 AM Date of : 1970 Age: 52 Procedure: Colonoscopy Indications: Screening for colorectal malignant neoplasm Providers: Pepe Millan DO Medicines: Monitored Anesthesia Care Patient Profile: This is a 52 year old female. Refer to note in patient chart for documentation of history and physical. Patient has symptoms of chronic heartburn and chronic nausea. Last Colonoscopy: 5 years ago. Complications: No immediate complications. Procedure: Pre-Anesthesia Assessment: - Prior to the procedure, a History and Physical was performed, and patient medications and allergies were reviewed. The patient is competent. The risks and benefits of the procedure and the sedation options and risks were discussed with the patient. All questions were answered and informed consent was obtained. Patient identification and proposed procedure were verified by the physician in the pre-procedure area. Mental Status Examination: alert and oriented. Airway Examination: normal oropharyngeal airway and neck mobility. Respiratory Examination: clear to auscultation. CV Examination: normal. Prophylactic Antibiotics: The patient does not require prophylactic antibiotics. Prior Anticoagulants: The patient has taken no anticoagulant or antiplatelet agents. ASA Grade Assessment: II - A patient with mild systemic disease. After reviewing the risks and benefits, the patient was deemed in satisfactory condition to undergo the procedure. The anesthesia plan was to use monitored anesthesia care (MAC). Immediately prior to administration of medications, the patient was re-assessed for adequacy to receive sedatives. The heart rate, respiratory rate, oxygen saturations, blood pressure, adequacy of pulmonary ventilation, and response to care were monitored throughout the procedure. The physical status of the patient was re-assessed after the procedure. After I obtained informed consent, the scope was passed under direct vision. Throughout the procedure, the patient's blood pressure, pulse, and oxygen saturations were monitored continuously. The Colonoscope was introduced through the anus and advanced to the terminal ileum. The colonoscopy was performed without difficulty. The patient tolerated the procedure well. The quality of the bowel preparation was adequate. Scope In: 7:23:32 AM Scope Withdrawal Time 0 hours 8 minutes 28 seconds Scope Out: 7:35:53 AM Total Procedure Duration Time 0 hours 12 minutes 21 seconds Findings: The perianal and digital rectal examinations were normal. An area of mildly congested mucosa was found in the sigmoid colon, at the splenic flexure, in the ascending colon and in the cecum. Biopsies were taken with a cold forceps for histology. Verification of patient identification for the specimen was done. Estimated blood loss was minimal. A few small-mouthed diverticula were found in the recto-sigmoid colon. The terminal ileum appeared normal. Impression: - Congested mucosa in the sigmoid colon, at the splenic flexure, in the ascending colon and in the cecum. Biopsied. - Diverticulosis in the recto-sigmoid colon. - The examined portion of the ileum was normal. Recommendation: - Discharge patient to home. - Resume previous diet. - Continue present medications. - Await pathology results. - Repeat colonoscopy in 5 years for surveillance. Procedure Code(s): --- Professional --- 99236, Colonoscopy, flexible; with biopsy, single or multiple CPT copyright 2021 [employer]. All rights reserved. The codes documented in this report are preliminary and upon chair trimmer review may be revised to meet current compliance requirements. Pepe Millan DO 01/26/2023 7:45:01 AM This report has been signed electronically. Number of Addenda: 0 Note Initiated On: 01/26/2023 7:22 AM
--- NOTE | 2023-01-26 07:45 | OP.CCLET_ITS ---
01/26/2023 Dorian Brantley Md Re : Colonoscopy procedure for Lilia Rodarte Dear Karon This procedure was performed on Thursday, January 26, 2023. My impressions and recommendations are as follows: Impressions : - Congested mucosa in the sigmoid colon, at the splenic flexure, in the ascending colon and in the cecum. Biopsied. - Diverticulosis in the recto-sigmoid colon. - The examined portion of the ileum was normal. Recommendations : - Discharge patient to home. - Resume previous diet. - Continue present medications. - Await pathology results. - Repeat colonoscopy in 5 years for surveillance. My findings are described in the full procedure note, which is enclosed. If I can be of further assistance, please feel free to contact me at . Sincerely, Pepe Friend, 01/26/2023 7:45:01 AM This report has been signed electronically.
== END 2023-01-26 08:31 | disposition home or self-care (01) ==
LOC: EN 06:12 → AC 06:16
PROVIDERS: Visit Provider Internal Medicine Gastroenterology
PROC: 0DJD8ZZ Inspection of Lower Intestinal Tract, Via Natural or Artificial Opening Endoscopic (ICD-10-PCS; CPT 45378; principal; 2023-01-26 07:10)
DX: Z12.11 Encounter for screening for malignant neoplasm of colon (principal); K44.9 Diaphragmatic hernia without obstruction or gangrene; K57.30 Diverticulosis of large intestine without perforation or abscess without bleeding; K58.1 Irritable bowel syndrome with constipation; K22.70 Barrett's esophagus without dysplasia; K21.00 Gastro-esophageal reflux disease with esophagitis, without bleeding; Z79.82 Long term (current) use of aspirin; Z87.19 Personal history of other diseases of the digestive system; J45.909 Unspecified asthma, uncomplicated; Z79.899 Other long term (current) drug therapy
CPT/HCPCS: 45380; 43239; 88305; 88313; J7120; J2405

== ENCOUNTER → 2023-09-13 | Outpatient (CLI) | payer OTHER, SELFPAY ==
[2023-09-13 10:01] LABS: Mucous, Urine 0 SEEN /hpf (<or=2+)
[2023-09-13 10:26] LABS: Color, Urine Yellow (Yellow); Glucose, Dipstick Normal (Normal); Ketone-Dipstick Negative (Negative); Leukocyte Esterase-Dipstick 100 /ul (Negative); Nitrite-Dipstick Negative (Negative); Occult Blood-Urine 250 /ul (Negative); Protein-Dipstick Negative (Negative); Urine Bilirubin Dipstick Negative (Negative); Urine Clarity Cloudy (Clear); Urine Urobilinogen Normal (Normal)
[2023-09-13 10:39] LABS: Bacteria 2+ /hpf (None Seen); Red Blood Cells-Urine 50-100 SEEN /hpf (0-5); Squamous Epithelial Cells - UA 0-5 SEEN /hpf (5-10); White Blood Cells 25-50 SEEN /hpf (0-5)
[2023-09-15 17:07] LABS: Myoglobin, Urine 2 ng/mL (0-13)
== END | disposition home or self-care (01) ==
PROVIDERS: Referring Provider Internal Medicine Gastroenterology; Visit Provider Internal Medicine Gastroenterology
DX: N39.0 Urinary tract infection, site not specified (principal)
CPT/HCPCS: 81001; 83874; 87077; 87086; 87088; 87186